=== PATIENT | male | born 1960 | race Caucasian/White ===

== ENCOUNTER 2019-05-08 00:10 | Emergency (ER) | payer OTHER ==
[~2019-05-08] VITALS: Ht 180.3 cm; Wt 85.2 kg
[~2019-05-08 00:10] MED LIST: HYDR25SU23 PR; POLY17PO6 PO; VITAMINS
[2019-05-08 00:22] VITALS: Ht 180.3 cm; Wt 85.2 kg
[2019-05-08] MEDS: HYDROmorphONE 1 MG/ML SYG IV STA ×2 (01:37→01:42)
[2019-05-08] MEDS: ONDANSETRON 4 MG INJ IV STA ×2 (01:37→01:42)
[2019-05-08] MEDS ORDERED: SOD CHLORIDE 0.9% 100 ML ONE (02:53)
[2019-05-08] MEDS ORDERED: IOHEXOL 300MG/ML 150 ML BTL ONE (02:53)
[2019-05-08 04:24] VITALS: BP 115/81; PULSE 81; RESP 18
== END 2019-05-08 04:45 | disposition home or self-care (01) ==
LOC: E/R 00:10
DX: K60.2 Anal fissure, unspecified (principal)
CPT/HCPCS: 36415; 74177; 80053; 85025; J1170; J2405; Q9967; Z7502; Z7610